=== PATIENT | male | born 1995 | race Caucasian/White ===

== ENCOUNTER 2019-03-01 20:20 | Emergency (ER) | payer BC, OTHER ==
--- NOTE | 2019-03-01 20:32 | EDM.PDOC ---
ED HPI GENERAL MEDICAL PROBLEM - General Stated Complaint: RT TOE PAIN Time Seen by Provider: 03/01/19 20:20 Source of Information: Reports: Patient, Family (Friends) History Limitations: Reports: No Limitations - History of Present Illness INITIAL COMMENTS - FREE TEXT/NARRATIVE: 23 y.o.w.m came with his friends to the ED after they were wrestling. During the wrestling sport, the patient dislocated his right big toe. His friend showed a picture from a laterally dislocated right be toe. To toes was reduced on arrival to the ED. Pt had limited ROM of his right toe due to discomfort. Pt refused pain meds. Pt is able to walk on his right heal. No other acute med issues. BP 154/84 Pulse 93 RR 18 Pulse ox 97% on RA Temp 36.7 Onset Date: 03/01/19 Onset Time: 19:00 Duration: Hour(s): Location: Reports: Lower Extremity, Right (big toe) Quality: Reports: Dull, Stabbing Severity: Moderate Improves with: Reports: Rest Worsens with: Reports: Movement Context: Reports: Trauma Associated Symptoms: Reports: No Other Symptoms R great toe Pain Score (Numeric/FACES): 5 - Related Data Allergies Allergy/AdvReac Type Severity Reaction Status Date / Time No Known Allergies Allergy Verified 03/01/19 20:48 Home Meds: Home Meds Albuterol [Ventolin HFA] 2 puff Q4H PRN 03/01/19 [History] Review of Systems - Review of Systems Review Of Systems: See Below Constitutional: Reports: No Symptoms Eyes: Reports: No Symptoms Ears: Reports: No Symptoms Nose: Reports: No Symptoms Mouth/Throat: Reports: No Symptoms Respiratory: Reports: No Symptoms Cardiovascular: Reports: No Symptoms GI/Abdominal: Reports: No Symptoms Genitourinary: Reports: No Symptoms Musculoskeletal: Reports: Other (right big toe, pain with movement) Skin: Reports: No Symptoms Neurological: Reports: No Symptoms Psychiatric: Reports: No Symptoms ED EXAM, GENERAL - Physical Exam Exam: See Below Exam Limited By: No Limitations General Appearance: Alert, WD/WN, Mild Distress Eye Exam: Bilateral Eye: Normal Inspection Ears: Normal External Exam Ear Exam: Bilateral Ear: Auricle Normal Nose: Normal Inspection Throat/Mouth: Normal Inspection, Normal Lips, Normal Teeth, Normal Gums, Normal Voice, No Airway Compromise Head: Atraumatic, Normocephalic Neck: Normal Inspection, Supple, Non-Tender, Full Range of Motion Respiratory/Chest: No Respiratory Distress, Lungs Clear, Normal Breath Sounds Cardiovascular: Normal Peripheral Pulses, Regular Rate, Rhythm, No Edema Peripheral Pulses: 1+: Brachial (R) GI/Abdominal: Normal Bowel Sounds, Soft, Non-Tender, No Organomegaly (Male) Exam: Deferred Rectal (Males) Exam: Deferred Back Exam: Normal Inspection, Full Range of Motion Extremities: Normal Inspection, No Pedal Edema, Normal Capillary Refill, Limited Range of Motion (right big toe) Neurological: Alert, Oriented, CN II-XII Intact, Normal Cognition, Abnormal Gait (because of pain right toe with movement) Psychiatric: Normal Affect Skin Exam: Warm, Dry, Intact, Normal Color Lymphatic: No Adenopathy Course - Vital Signs Text/Narrative:: 23 y.o.w.m came with his friends to the ED after they were wrestling. During the wrestling sport, the patient dislocated his right big toe. His friend showed a picture from a laterally dislocated right be toe. To toes was reduced on arrival to the ED. Pt had limited ROM of his right toe due to discomfort. Pt refused pain meds. Pt is able to walk on his right heal. No other acute med issues. BP 154/84 Pulse 93 RR 18 Pulse ox 97% on RA Temp 36.7 PE: WNWD W M with right toe discomfort, no open wound Imaging: Right toe: NAD Impression: S/P right great Toe dislocation, Tore sprain Tx: Ice, Refused pain meds Reexam: Pt was doing fine in the ED Plan: D/C with instruction Last Recorded V/S: Last Vital Signs Temp 36.7 C 03/01/19 20:43 Pulse 70 03/01/19 21:05 Resp 18 03/01/19 21:05 BP 137/84 03/01/19 21:05 Pulse Ox 98 03/01/19 21:05 - Orders/Labs/Meds Orders: Active Orders 24 hr Category Date Time Status Toes Great Toe Rt T5 [CR] Stat Exams 03/01/19 20:28 Taken Departure - Departure Time of Disposition: 20:52 Disposition: Home, Self-Care 01 Condition: Good Clinical Impression: Sprain of toe, great, right Dislocation of great toe, right, closed Qualifiers: Encounter type: initial encounter Qualified Code(s): S93.104A - Unspecified dislocation of right toe(s), initial encounter - Discharge Information Instructions: RICE Therapy for Routine Care of Injuries, [id number], Toe Dislocation, [id number] Referrals: PCP,None [Primary Care Provider] - Forms: ED Department Discharge Additional Instructions: Your toe reduced itself itself prior to arrival. Please walk on your right heal , apply ice to the affected area, Motrin for pain, please follow up with regular MD at clinic as needed, come back if your symptoms get worse acutely - My Orders Last 24 Hours: My Active Orders 03/01/19 20:28 Toes Great Toe Rt T5 [CR] Stat - Assessment/Plan Last 24 Hours: My Active Orders 03/01/19 20:28 Toes Great Toe Rt T5 [CR] Stat
--- NOTE | 2019-03-02 11:01 | CR ---
INDICATION: Trauma. RIGHT GREAT TOE: Four images of the right toes were obtained for the great toe in three projections, 03/01/19 - no comparisons. A fracture, dislocation, or other significant bone or joint abnormality was not identified. MTDD
== END 2019-03-01 21:07 | disposition home or self-care (01) ==
LOC: FB.ED 20:20
DX: S93.501A Unspecified sprain of right great toe, initial encounter (principal); Z79.899 Other long term (current) drug therapy; Y93.72 Activity, wrestling; X58.XXXA Exposure to other specified factors, initial encounter
CPT/HCPCS: 73660-T5; 99283-25